=== PATIENT | male | born 1980 | race African-American/Black ===

== ENCOUNTER 2023-01-06 08:38 | Outpatient (CLI) | payer BC, SELFPAY | END 2023-01-06 08:39 | disposition home or self-care (01) | PROVIDERS: Visit Provider Family Medicine | DX: I10 Essential (primary) hypertension (principal); Z12.5 Encounter for screening for malignant neoplasm of prostate; Z13.220 Encounter for screening for lipoid disorders | CPT/HCPCS: 80053; 80061; 84153 ==

== ENCOUNTER 2023-12-30 18:05 | Emergency (ER) | payer OTHER, SELFPAY ==
[2023-12-30 18:10] VITALS: BP 188/135; PULSE 90; RESP 16; TEMP 36.9; O2SAT 99; BMI 33.2
[2023-12-30 18:25] VITALS: O2SAT 98
--- NOTE | 2023-12-30 18:25 | CRLHL7_ITS ---
For Patients: As a result of the Century Cures Act, medical imaging exams and procedure reports are released immediately into your electronic medical record. You may view this report before your referring provider. If you have questions, please contact your health care provider. INDICATION: EPIGASTRIC PAIN, NAUSEA. TECHNIQUE: CT abdomen and pelvis acquired with 130 cc Isovue 370 IV contrast. COMPARISON: None. FINDINGS: Lower chest: Unremarkable. Liver: Unremarkable. Normal in size and attenuation. No suspicious masses. Gallbladder and bile ducts: Unremarkable. No stones or inflammation. No biliary dilatation. Pancreas: Unremarkable. No mass or inflammation. Spleen: Unremarkable. Normal in size. No masses. Adrenal glands: Unremarkable. No nodules. Kidneys: Unremarkable. No suspicious masses, stones, or hydronephrosis. GI tract: Mild distal gastric wall thickening. No bowel obstruction.. Normal appendix. Vasculature: Abdominal aorta is normal in caliber. Mesenteric arteries are patent. Lymph nodes: No lymphadenopathy. Peritoneum/Abdominal Wall: Unremarkable. No sign of mass or infiltration. No free air or significant free fluid. Pelvis: Unremarkable. Bones: Unremarkable for age. IMPRESSION: Mild distal gastric wall thickening may be seen in setting of gastritis. Please note that all CT scans at this facility use dose modulation, iterative reconstruction, and/or weight-based dosing when appropriate to reduce radiation dose to as low as reasonably achievable. Dictated by Annetta Julio MD @ 12/30/2023 7:45:48 PM (Electronically Signed)
--- NOTE | 2023-12-30 18:25 | ED.GENADULT ---
HPI - General Adult General Time Seen by Provider: 18:07 Date Seen: 12/30/23 Chief complaint: Abdominal Pain Stated complaint: Chest pain Time Seen by Provider: 12/30/23 18:07 Source: patient, RN notes reviewed and old records reviewed Mode of arrival: ambulatory Limitations: no limitations History of Present Illness HPI narrative: This 43-year-old male is ambulatory into the ED of his own accord complaining of intermittent epigastric pain. He states this started last night. He was eating beef and potatoes soup quickly. He felt like something was stuck right above his stomach. He has been able to drink. Since that time he has been notice seen episodes lasting seconds where he will have a cramping or a buildup of pain in the epigastric area. He has had no fevers or chills, has had some nausea. He did stop at a gas station and ate it she has worker about 5:15 p.m.. The pain really intensified after that and became more frequent. On his way here, pain lessened. No changes in bowel or urinary symptoms. He does have a sense when he swallows he can feel liquid going by a lower area in his esophagus. He has had some heartburn and reflux symptoms over the last year but states that is higher in the chest, feels different. He has had no abdominal surgery. He does note when he takes a deep breath this intensifies the discomfort when he has it in the epigastric area, there is no chest pain with it. He is not short of breath. His mom is had colon cancer, he was to get set up for a colonoscopy last year but it did not happen. No significant alcohol intake, patient is a smoker of cigarettes. Related Data Home Medications ?Medication ?Instructions ?Recorded ?Confirmed losartan 50 mg tablet (Cozaar) 50 mg PO DAILY 12/30/23 12/30/23 Previous Rx's ?Medication ?Instructions ?Recorded valsartan 320 mg tablet 320 mg PO DAILY #90 tabs 11/25/22 amlodipine 5 mg tablet 5 - 10 mg (1 - 2 x 5 mg) PO QDAY 01/06/23 #180 tabs peg 3350-electrolytes 236 4,000 ml PO DIRECTED #4,000 mL 01/06/23 gram-22.74 gram-6.74 gram-5.86 gram solution (Golytely) omeprazole 40 mg capsule,delayed 40 mg PO DAILY #30 caps 12/30/23 release valsartan 320 mg tablet (Diovan) 320 mg PO DAILY #30 tabs 12/30/23 Allergies Allergy/AdvReac Type Severity Reaction Status Date / Time No Known Drug Allergies Allergy Verified 12/30/23 18:41 Review of Systems Status of ROS: Reports: 6 or more systems reviewed and unremarkable except as noted in History and below [facility] Medical History Family history of colon cancer in mother ?Z80.0 - Family history of malignant neoplasm of digestive organs (ICD-10) HTN (hypertension) ?I10 - Essential (primary) hypertension (ICD-10) Social History Smoking Status: Never smoker How often do you have a drink containing alcohol: monthly or less AUDIT-C Alcohol total score: 1 Non-prescribed substance use: denies use Exam Const: Vital Signs, click to edit/add: Vital Signs - 24 hr 12/30/23 18:10 12/30/23 18:25 12/30/23 20:22 Temperature 98.5 F 97.9 F Pulse Rate [Pulse Oximeter] 90 71 Respiratory Rate 16 18 Blood Pressure [Ri ght Upper Arm] 188/135 H 166/116 H Pulse Oximetry 99 98 98 Oxygen Delivery Me thod Room Air Room Air This 43-year-old male is alert, interactive, no apparent distress. He is very pleasant. Sclera clear, symmetrical facial function, speaking complete sentences with normal speech. Neck supple, no adenopathy. Lungs are clear, good air entry, no wheezing or crackles. CV regular rate and rhythm, no murmur, normal S1-S2, no S3-S4. Abdomen is soft, nontender, nondistended. He has no rebound or guarding, no organomegaly, no masses. He has no pain right now but when the pain comes it is in his epigastric area. No lower extremity edema. Is ambulatory into the ED of his own accord. Documenting provider has reviewed patient's vital signs: yes Course Course ED Course: Patient declines any need for any pain medicine at this time, denies any need for nausea medicine as well. He will let us know if things intensify. Discussed with him that esophagus leads into the stomach, could be something as simple as stretching of his esophagus from too big of a food bolus and having symptomatic issues now. Could be esophagitis, could be atypical presentation of gastric pathology like gastritis or early peptic ulcer disease. Pancreas is in the epigastric area, could be gallbladder pathology. He understands he may need to have gallbladder ultrasound if there is further concern for this after initial workup. It does not sound cardiac in nature but will get an EKG and troponin. Reevaluation(s) Time of Reevaluation #1: 20:20 Reevaluation #1: Patient has had his symptoms improved while he has been here. We did review that his CT showing only changes that are potential gastritis. We are going to give him 40 mg IV Protonix. We did discuss that heartburn and chronic reflux symptoms can also cause esophagitis, things like Carreno's esophagus long-term. He really does need to get an EGD. He is overdue for screening colonoscopy with his family history of colon cancer. He lives in [place], plans on following up in our system. We discussed the importance with his smoking history to make sure that there are no concerning changes within the mucosa. We also discussed that his EKG showing some T-waves in the inferior leads. This could be due to hypertensive change but but there is also the possibility of underlying cardiac disease that is developing with blockage. His chest pain really does not seem to be consistent with cardiac disease but he really should have an echo as a next step to identify his cardiac function. We will plan on having him follow-up with Dr. Villalobos, will have these test results assigned back to him. Patient admits he is out of his valsartan. He really did not like the amlodipine. He was on 320 mg of valsartan. I can get that renewed for him and he can get further prescriptions when he follows up in clinic. Time of Reevaluation #2: 20:39 Reevaluation #2: Patient is follow-up troponin is normal. He is trying to eat a little granola, is tolerating it. We are going to discharge him to home with outpatient follow-up. Vital Signs Vital signs: Initial Vital Signs Temperature 98.5 F 12/30/23 18:10 Temperature Source Temporal Artery Scan 12/30/23 18:10 Pulse Rate 90 12/30/23 18:10 Respiratory Rate 16 12/30/23 18:10 Blood Pressure 188/135 H 12/30/23 18:10 Blood Pressure Mean 152 H 12/30/23 18:10 Blood Pressure Position High-Fowlers 12/30/23 18:10 Pulse Oximetry 99 12/30/23 18:10 Oxygen Delivery Method Room Air 12/30/23 18:10 Vital Signs Temperature 98.5 F 12/30/23 18:10 Pulse Rate 90 12/30/23 18:10 Respiratory Rate 16 12/30/23 18:10 Blood Pressure 188/135 H 12/30/23 18:10 Pulse Oximetry 99 12/30/23 18:10 Oxygen Delivery Method Room Air 12/30/23 18:10 Temperature 97.9 F 12/30/23 20:22 Pulse Rate 71 12/30/23 20:22 Respiratory Rate 18 12/30/23 20:22 Blood Pressure 166/116 H 12/30/23 20:22 Pulse Oximetry 98 12/30/23 20:22 Oxygen Delivery Method Room Air 12/30/23 20:22 Medications Administered Medications: Generic Name Dose Route Start Last Admin Trade Name Freq PRN Reason Stop Dose Admin Pantoprazole Sodium 40 mg 12/30/23 20:16 12/30/23 20:26 Pantoprazole Sodium 40 Mg Inj IVP 12/30/23 20:17 40 mg ONCE ONE Administration Medical Decision Making Lab Data Lab results reviewed: Yes I reviewed the patient's lab results Labs: Lab Results 12/30/23 12/30/23 Range/Units 18:49 20:25 WBC 5.53 (4.50-11.00) K/uL RBC 5.01 (4.30-5.90) m/uL Hgb 14.7 (13.5-17.5) gm/dL Hct 43.7 (37.0-53.0) % MCV 87 (80-100) fL MCH 29 (26-34) pg MCHC 34 (32-36) gm/dL RDW Coeff of Olaf 13.2 (11.5-15.5) % Plt Count 215 (140-440) K/uL Neut % (Auto) 60.6 (42.0-72.0) % Lymph % (Auto) 24.8 (20-44) % Summit % (Auto) 12.8 H (0.0-11.0) % Eos % (Auto) 1.4 (0.0-7.0) % Baso % (Auto) 0.2 (0.0-3.0) % Neut # (Auto) 3.35 (1.7-7.0) K/uL Lymph # (Auto) 1.37 (0.90-2.90) K/uL [place] # (Auto) 0.70 (0.00-0.90) K/UL Eos # (Auto) 0.08 (0.00-0.50) K/uL Baso # (Auto) 0.01 (0.00-0.30) K/uL Abs Immat Gran (auto) 0.01 (0.00-0.30) K/uL Imm/Tot Granulo (auto) 0.2 % Sodium 137 (135-149) mmol/L Potassium 3.8 (3.6-5.1) mmol/L Chloride 102 (96-114) mmol/L Carbon Dioxide 26 (20-32) mmol/L Anion Gap 9 (7-15) mEq/L BUN 13 (5-24) mg/dL Creatinine 0.8 (0.5-1.5) mg/dL Estimated Creat Clear 132.03 Estimated GFR 113 ml/min Glucose 82 (60-115) mg/dL Lactate 1.7 (0.5-1.9) mmol/L Calcium 9.1 (8.4-10.6) mg/dL Total Bilirubin 0.3 (0.1-1.5) mg/dL Direct Bilirubin 0.2 (0.0-0.5) mg/dL AST 34 (12-35) U/L ALT 30 (4-50) U/L Alkaline Phosphatase 72 (40-150) U/L Troponin I < 0.01 L (0.01-0.04) ng/mL C-Reactive Protein < 0.5 L (0.5-1.0) mg/dL NT-Pro-B Natriuret Pep < 20 pg/mL Total Protein 8.2 (6.0-8.3) g/dL Albumin 4.6 (3.3-5.0) g/dL Lipase 43 (23-300) U/L POC Troponin I 0.01 (0.01-0.04) ng/ml Imaging Data CT scan - abdomen: Attestation: I have reviewed the pertinent imaging results. Radiologist's impression: Patient: OLIVIA BOYD Facility:?[facility] Patient ID:?[id number] Site Patient ID:?[id number]. Site :?[id number] Study:?CT-Abdomen/Pelvis W/ 130CC ISOVUE 370-12/30/2023 7:11:22 PM Ordering Physician:Tessa Harper Final Report: INDICATION: EPIGASTRIC PAIN, NAUSEA. TECHNIQUE: CT abdomen and pelvis acquired with 130 cc Isovue 370 IV contrast. COMPARISON: None. FINDINGS: Lower chest: Unremarkable. Liver: Unremarkable. Normal in size and attenuation. No suspicious masses. Gallbladder and bile ducts: Unremarkable. No stones or inflammation. No biliary dilatation. Pancreas: Unremarkable. No mass or inflammation. Spleen: Unremarkable. Normal in size. No masses. Adrenal glands: Unremarkable. No nodules. Kidneys: Unremarkable. No suspicious masses, stones, or hydronephrosis. GI tract: Mild distal gastric wall thickening. No bowel obstruction.. Normal appendix. Vasculature: Abdominal aorta is normal in caliber. Mesenteric arteries are patent. Lymph nodes: No lymphadenopathy. Peritoneum/Abdominal Wall: Unremarkable. No sign of mass or infiltration. No free air or significant free fluid. Pelvis: Unremarkable. Bones: Unremarkable for age. IMPRESSION: Mild distal gastric wall thickening may be seen in setting of gastritis. Please note that all CT scans at this facility use dose modulation, iterative reconstruction, and/or weight-based dosing when appropriate to reduce radiation dose to as low as reasonably achievable. Dictated by Annetta Julio MD @ 12/30/2023 7:45:48 PM (Electronic Signature) ECG Data Attestation: I personally reviewed and interpreted this ECG as follows: (Normal sinus rhythm, 77 beats per minute. Flipped T-waves inferior leads and V6 without any ST segment change. No evidence of prior infarct.) Prior ECG tracings: not available for review Discharge Plan Discharge Clinical Impression: HTN (hypertension) Qualifiers: Hypertension type: primary hypertension Qualified Code(s): I10 - Essential (primary) hypertension Abdominal pain Qualifiers: Abdominal location: epigastric Qualified Code(s): R10.13 - Epigastric pain Gastritis Qualifiers: Gastritis type: unspecified gastritis Chronicity: acute Gastritis bleeding: without bleeding Qualified Code(s): K29.00 - Acute gastritis without bleeding Patient Disposition: Home, Self-Care Condition: Stable Instructions: Gastritis (ED), Diet for Stomach Ulcers and Gastritis (ED), Hypertension (ED) Additional Instructions: Start on omeprazole, start this medicine tomorrow. I have also refilled your valsartan for you. Please call [facility] at [phone] to get scheduled for a follow-up, ask staff to schedule you with Dr. Villalobos for an ED follow-up. I have put in orders for the echo, have requested the EGD for the gastritis seen on CT and your current abdominal symptoms, have asked if they can do a screening colonoscopy on the same day, both orders placed. You should hopefully be hearing from Radiology to get your echo scheduled as well as the endoscopy center to schedule the scopes. I have given you handout on food recommendations. In the meantime, if you have increasing abdominal pain, have vomiting, develops fevers with your symptoms, notice dark tarry stools or blood in stools, do recommend re-evaluation. 4 year overall health and including your vascular Health, it is recommended to try to eat heart healthy, stop smoking. I would not encourage a new exercise program until all further testing with the echo has been done, possible cardiac stress testing once the echo results are known. Activity Level: Activity as Tolerated Prescriptions: New valsartan [Diovan] 320 mg tablet 320 mg PO DAILY Qty: 30 1RF omeprazole 40 mg capsule,delayed release(DR/EC) 40 mg PO DAILY Qty: 30 0RF No Action valsartan 320 mg tablet 320 mg PO DAILY Qty: 90 1RF amlodipine 5 mg tablet 5 - 10 mg PO QDAY Qty: 180 1RF peg 3350-electrolytes [Golytely] 236-22.74-6.74 -5.86 gram recon soln 4,000 ml PO DIRECTED Qty: 4000 0RF Rx Instructions: 1 day prior to scopes, between 4 and 6 p.m., drink 8 oz glass every 15 minutes until half a gallon is gone. 6 hours prior to procedure, drink 8 oz glass every 15 minutes until second half gallon is gone. losartan [Cozaar] 50 mg tablet 50 mg PO DAILY Follow Up/Referrals: Provider,Not a Local [Primary Care Provider] - Stand Alone Forms: [employer] Info Instructions
[2023-12-30 18:54] LABS: Lactate* 1.7 mmol/L (0.5-1.9)
[2023-12-30 18:57] LABS: Basophils Absolute Auto 0.01 K/uL (0.00-0.30); Basophils Percent Auto 0.2 % (0.0-3.0); Eosinophils Absolute Auto 0.08 K/uL (0.00-0.50); Eosinophils Percent Auto 1.4 % (0.0-7.0); Hematocrit 43.7 % (37.0-53.0); Hemoglobin* 14.7 gm/dL (13.5-17.5); Immature Granulocytes Abs Auto 0.01 K/uL (0.00-0.30); Immature Granulocytes Pct Auto 0.2 %; Lymphocytes Absolute Auto 1.37 K/uL (0.90-2.90); Lymphocytes Percent Auto 24.8 % (20-44); Mean Corpuscular HGB Conc 34 gm/dL (32-36); Mean Corpuscular Hemoglobin 29 pg (26-34); Mean Corpuscular Volume 87 fL (80-100); Monocytes Percent Auto 12.8 % (0.0-11.0); Neutrophils Absolute Auto 3.35 K/uL (1.7-7.0); Neutrophils Percent Auto 60.6 % (42.0-72.0); Platelet Count* 215 K/uL (140-440); RDW Coefficient of Variation % 13.2 % (11.5-15.5); Red Blood Count 5.01 m/uL (4.30-5.90); White Blood Count* 5.53 K/uL (4.50-11.00)
[2023-12-30 19:01] LABS: Slide Review Reflex No
[2023-12-30 19:11] LABS: Albumin* 4.6 g/dL (3.3-5.0); Chloride* 102 mmol/L (96-114); Sodium* 137 mmol/L (135-149)
[2023-12-30 19:12] LABS: Potassium* 3.8 mmol/L (3.6-5.1)
[2023-12-30 19:13] LABS: Creatinine* 0.8 mg/dL (0.5-1.5); Est. Creatinine Clearance* 132.03; Estimated Glomerular Filt Rate 113 ml/min
[2023-12-30 19:14] LABS: Alanine Aminotransferase* 30 U/L (4-50); Alkaline Phosphatase* 72 U/L (40-150); Anion Gap 9 mEq/L (7-15); Aspartate Amino Transferase* 34 U/L (12-35); Bilirubin Direct* 0.2 mg/dL (0.0-0.5); Bilirubin Total* 0.3 mg/dL (0.1-1.5); Blood Urea Nitrogen* 13 mg/dL (5-24); Carbon Dioxide* 26 mmol/L (20-32); Glucose* 82 mg/dL (60-115); Lipase* 43 U/L (23-300); Total Protein* 8.2 g/dL (6.0-8.3)
[2023-12-30 19:15] LABS: Calcium* 9.1 mg/dL (8.4-10.6)
[2023-12-30 19:30] LABS: C Reactive Protein* < 0.5 mg/dL (0.5-1.0); NT Pro B Type NatriureticPept* < 20 pg/mL; Troponin I* < 0.01 ng/mL (0.01-0.04)
[2023-12-30 20:22] VITALS: BP 166/116; PULSE 71; RESP 18; TEMP 36.6; O2SAT 98
[2023-12-30] MEDS: PANTOPRAZOLE SODIUM 40 MG INJ IVP (20:26)
[2023-12-30 20:39] LABS: Troponin, Point-of-Care* 0.01 ng/ml (0.01-0.04)
[2023-12-30 21:00] VITALS: BP 166/116; PULSE 71; RESP 18; TEMP 36.6
== END 2023-12-30 21:00 | disposition home or self-care (01) ==
PROVIDERS: Emergency Provider Family Medicine
DX: R10.13 Epigastric pain (principal); K29.00 Acute gastritis without bleeding; I10 Essential (primary) hypertension
CPT/HCPCS: 36415; 74177; 80053; 82248; 83605; 83690; 83880; 84484; 85025; 86140; 93005; 94761; 96374; 99284; 99285; J2470; Q9967

== ENCOUNTER 2024-01-01 17:46 | Emergency (ER) | payer OTHER, SELFPAY ==
[2024-01-01 18:08] VITALS: BP 169/105; PULSE 86; RESP 18; TEMP 37.6; O2SAT 97; BMI 33.1
--- NOTE | 2024-01-01 18:48 | ED.SKABFB ---
HPI - Skin/Abscess/Foreign Bdy General Date Seen: 01/01/24 Chief complaint: Skin/Abscess/Foreign Body Stated complaint: Hives on arms/legs Time Seen by Provider: 01/01/24 17:59 Source: patient Mode of arrival: ambulatory Limitations: no limitations History of Present Illness HPI narrative: This very nice gentleman was here few days ago diagnosed with reflux, given Protonix here in the ER, he has not yet picked up his prescription for his omeprazole, and also was given a prescription for his antihypertensive medications. He has been on these for a while, the last 24 hours he has got a red very itchy rash most notably on his arms and his legs. 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 Did take some Pepcid along with some Claritin, and this seemingly helped some of the itching. The Pepcid did help some of his symptoms of his stomach presented here because he has got the rash, and was worried that possibly this was an allergic reaction Denies any cough shortness of breath chest pain nausea vomiting, or any other symptoms at all. Never had before rashes secondary to this there is no facial swelling. He does note did have a cold approximately 3-4 weeks ago Related Data Home Medications ?Medication ?Instructions ?Recorded ?Confirmed losartan 50 mg tablet (Cozaar) 50 mg PO DAILY 12/30/23 12/30/23 Previous Rx's ?Medication ?Instructions ?Recorded valsartan 320 mg tablet 320 mg PO DAILY #90 tabs 11/25/22 amlodipine 5 mg tablet 5 - 10 mg (1 - 2 x 5 mg) PO QDAY 01/06/23 #180 tabs peg 3350-electrolytes 236 4,000 ml PO DIRECTED #4,000 mL 01/06/23 gram-22.74 gram-6.74 gram-5.86 gram solution (Golytely) omeprazole 40 mg capsule,delayed 40 mg PO DAILY #30 caps 12/30/23 release valsartan 320 mg tablet (Diovan) 320 mg PO DAILY #30 tabs 12/30/23 prednisone 50 mg tablet 50 mg PO DAILY #7 tabs 01/01/24 Allergies Allergy/AdvReac Type Severity Reaction Status Date / Time No Known Drug Allergies Allergy Verified 12/30/23 18:41 Review of Systems Status of ROS: Reports: 10 or more systems reviewed and unremarkable except as noted in History and below [facility] Medical History Family history of colon cancer in mother ?Z80.0 - Family history of malignant neoplasm of digestive organs (ICD-10) HTN (hypertension) ?I10 - Essential (primary) hypertension (ICD-10) Social History Smoking Status: Never smoker How often do you have a drink containing alcohol: monthly or less AUDIT-C Alcohol total score: 1 Non-prescribed substance use: denies use Exam Narrative: Exam Narrative: Speaking to me normally, no swelling around his mouth, oropharynx is normal, chest is clear heart sounds are normal, skin reveals no petechiae, but he does have a rash even his G can sees consistent with urticarial plaques, on his arms and his legs, that he is ex excoriated or itched Const: Vital Signs, click to edit/add: Vital Signs - 24 hr 01/01/24 18:08 Temperature 99.7 F H Pulse Rate [Pulse Oximeter] 86 Respiratory Rate 18 Blood Pressure [Ri ght Upper Arm] 169/105 H Pulse Oximetry 97 Oxygen Delivery Me thod Room Air Documenting provider has reviewed patient's vital signs: yes Course Course ED Course: I discussed with him that this is most likely from a viral illness but it could be from the medication I think it is unlikely that it is the Pepcid or the actual Claritin that he took, more likely could be the Protonix although that does not happen very often either. More likely is just the incident that occurred at the same time. I do not think this is going to progressed angioedema or any sort of throat issues, but I do think some prednisone will help him, although I did warn him this may make his reflux worse. We went over the risks benefits and side effects of this, and he was agreeable to this. Vital Signs Vital signs: Initial Vital Signs Temperature 99.7 F H 01/01/24 18:08 Temperature Source Temporal Artery Scan 01/01/24 18:08 Pulse Rate 86 01/01/24 18:08 Respiratory Rate 18 01/01/24 18:08 Blood Pressure 169/105 H 01/01/24 18:08 Blood Pressure Mean 126 H 01/01/24 18:08 Blood Pressure Position Sitting 01/01/24 18:08 Pulse Oximetry 97 01/01/24 18:08 Oxygen Delivery Method Room Air 01/01/24 18:08 Vital Signs Temperature 99.7 F H 01/01/24 18:08 Pulse Rate 86 01/01/24 18:08 Respiratory Rate 18 01/01/24 18:08 Blood Pressure 169/105 H 01/01/24 18:08 Pulse Oximetry 97 01/01/24 18:08 Oxygen Delivery Method Room Air 01/01/24 18:08 Temperature 99.7 F H 01/01/24 18:08 Pulse Rate 86 01/01/24 18:08 Respiratory Rate 18 01/01/24 18:08 Blood Pressure 169/105 H 01/01/24 18:08 Pulse Oximetry 97 01/01/24 18:08 Oxygen Delivery Method Room Air 01/01/24 18:08 MDM - Skin/Abscess/Foreign Bdy MDM Narrative Medical decision making narrative: Differential diagnosis include but are not limited to contact dermatitis, allergic reaction, shingles, impetigo, seborrheic dermatitis, Tiago Artie syndrome, ITP, meningococcus, HSP Medical Records Attestation: I reviewed the patient's medical records. Discharge Plan Discharge Clinical Impression: Urticaria Instructions: Urticaria (ED), Acute Rash (ED) Additional Instructions: Home rest you can continue using the Pepcid along with the Claritin, prednisone will cause you to be very hungry, keeping up at night, might give you some heartburn, but will help the rash. insymeds Activity Level: Light activity Prescriptions: New prednisone 50 mg tablet 50 mg PO DAILY Qty: 7 0RF No Action valsartan 320 mg tablet 320 mg PO DAILY Qty: 90 1RF amlodipine 5 mg tablet 5 - 10 mg PO QDAY Qty: 180 1RF peg 3350-electrolytes [Golytely] 236-22.74-6.74 -5.86 gram recon soln 4,000 ml PO DIRECTED Qty: 4000 0RF Rx Instructions: 1 day prior to scopes, between 4 and 6 p.m., drink 8 oz glass every 15 minutes until half a gallon is gone. 6 hours prior to procedure, drink 8 oz glass every 15 minutes until second half gallon is gone. losartan [Cozaar] 50 mg tablet 50 mg PO DAILY valsartan [Diovan] 320 mg tablet 320 mg PO DAILY Qty: 30 1RF omeprazole 40 mg capsule,delayed release(DR/EC) 40 mg PO DAILY Qty: 30 0RF Follow Up/Referrals: Provider,Not a Local [Primary Care Provider] - Stand Alone Forms: [employer] Info Instructions
== END 2024-01-01 18:53 | disposition home or self-care (01) ==
LOC: ED 18:41
PROVIDERS: Emergency Provider Family Medicine
DX: L50.9 Urticaria, unspecified (principal)
CPT/HCPCS: 99283